=== PATIENT | female | born 1950 | race Caucasian/White ===

== ENCOUNTER 2022-03-10 08:40 | Emergency (ER) | payer MEDICARE, OTHER ==
[~2022-03-10] VITALS: Ht 149.9 cm; Wt 56.2 kg
[~2022-03-10 08:40] MED LIST: AMLODIPINE BESY10 MG PO; AMLODIPINE BESYL5 MG PO; ATORVASTATIN CA20 MG PO; DAILY VITAMIN1 EAC2 PO; NORCO 7.5-3251 EACH PO; ULTRAM50 MG PO
[2022-03-10] MEDS ORDERED: CYCLOBENZAPRINE10 MG PO (08:57)
[2022-03-10] MEDS ORDERED: VENTOLIN HFA18 GM INH (13:00)
[2022-03-10] MEDS ORDERED: PREDNISONE20 MG PO (13:00)
--- NOTE | 2022-03-11 21:31 | EKG ---
[facility] [address] [place] [address] Signed Sinus rhythm with marked sinus arrhythmia with occasional premature ventricular complexes Cannot rule out Inferior infarct , age undetermined Cannot rule out Anterior infarct , age undetermined Abnormal ECG When compared with ECG of 02-DEC-2018 15:28, premature ventricular complexes are now present Minimal criteria for Anterior infarct are now present Questionable change in QRS axis Confirmed by Noni Ritter MD () on 03/11/2022 9:31:30 PM Electronically Signed By: NONI RITTER MD 03/11/222130 PATIENT NAME: AMINA CASAS Electrocardiogram DATE OF : 52 PHYSICIAN: NONI RITTER MD REPORT #: [id number] REPORT IS CONFIDENTIAL AND NOT TO BE RELEASED WITHOUT AUTHORIZATION
== END 2022-03-10 13:26 | disposition home or self-care (01) ==
LOC: ED 08:40
DX: J44.1 Chronic obstructive pulmonary disease with (acute) exacerbation (principal); F17.200 Nicotine dependence, unspecified, uncomplicated; Z79.899 Other long term (current) drug therapy; Z88.8 Allergy status to other drugs, medicaments and biological substances; Z88.2 Allergy status to sulfonamides; Z20.822 Contact with and (suspected) exposure to COVID-19
CPT/HCPCS: 36415; 71045; 71260; 80053; 83880; 84484; 85025; 85379; 87502; 93005; 93010; 94640; 96374; 99285-25; C9803; J2930; Q9967; U0003